=== PATIENT | female | born 1960 | race Caucasian/White ===

== ENCOUNTER 2017-07-02 11:36 | Inpatient (IN) | payer MEDICAID ==
[2017-07-02] MEDS ORDERED: Alum-Mag Hydrox-Simethicone Susp (30 mL) PO STA (12:26)
[2017-07-02] MEDS ORDERED: Atrop/Hyos/Scop/PhenoB Elixir PO STA (12:26)
--- NOTE | 2017-07-02 12:32 | ED PDOC ---
HPI: General Adult Time Seen by Provider: 07/02/17 12:25 Chief Complaint (Nursing): Abdominal Pain Chief Complaint (Provider): abdominal pain History Per: Patient, Commissary Representative (son at bedside) History/Exam Limitations: language barrier (bruneian speaking) Onset/Duration Of Symptoms: Days (<1) Have you had recent travel within the past 21 days to any of the following countries: [place], [place], [place] or [place]?: No Current Symptoms Are (Timing): Still Present Severity: Severe Pain Scale Rating Of: 10 Recently: Treated By A Physician Additional History Per: Patient Additional Complaint(s): pt p/w + few hours onset of epigastric pain, radiating to her mid back and radiating down her abd (left side), at most pain is 10/10; pt states + nausea, + sweating, subjective fever, no chills, no cp/sob/palpitations, no vomiting, no appetite, no urinary/bowel changes; pt states last BM was this morning and it was normal; pt states pain started while she was at work this morning; pt has had similar pain in the past and her PCP had prescribed her gastritis medications; pt states no fall/trauma/sick contact, no travel counselor is here for further eval pt's without other complaints. PCP: DR roberts Past Medical History Reviewed: Historical Data, Nursing Documentation, Vital Signs Vital Signs: Last Vital Signs Temp 98.5 F 07/02/17 16:58 Pulse 60 07/02/17 16:58 Resp 20 07/02/17 16:58 BP 127/78 07/02/17 16:58 Pulse Ox 98 07/02/17 16:58 - Medical History PMH: Diabetes, Gastritis - Surgical History Surgical History: No Surg Hx - Family History Family History: States: No Known Family Hx - Living Arrangements Living Arrangements: With Family - Social History Current smoker - smoking cessation education provided: No Ex-Smoker (has not smoked in the last 12 months): No Alcohol: None Drugs: Denies - Home Medications Home Medications: Ambulatory Orders Medication Instructions Recorded Atorvastatin [Lipitor] 20 mg PO DAILY 07/02/17 SITagliptin [Januvia] 100 mg PO DAILY 07/02/17 - Allergies Allergies/Adverse Reactions: Allergies Allergy/AdvReac Type Severity Reaction Status Date / Time Penicillins Allergy RASH Verified 07/02/17 12:05 Tetracyclines Allergy RASH Verified 07/02/17 12:05 Review of Systems ROS Statement: Except As Marked, All Systems Reviewed And Found Negative Constitutional: Positive for: Fever, Chills, Weakness. Negative for: Sweats Eyes: Negative for: Pain, Vision Change ENT: Negative for: Ear Pain, Nose Pain, Nose Congestion Cardiovascular: Negative for: Chest Pain Respiratory: Negative for: Cough, Shortness of Breath, SOB with Exertion Gastrointestinal: Positive for: Nausea, Abdominal Pain Genitourinary Female: Negative for: Dysuria, Frequency, Incontinence, Hematuria , Vaginal Discharge, Vaginal Bleeding Musculoskeletal: Positive for: Back Pain. Negative for: Neck Pain, Arm Pain, Hand Pain Skin: Negative for: Rash Neurological: Positive for: Weakness, Dizziness. Negative for: Headache Psych: Negative for: Anxiety, Depression Physical Exam - Reviewed Nursing Documentation Reviewed: Yes Vital Signs Reviewed: Yes (mildly elevated BP) - Physical Exam Comments: General: alert/awake, GCS = 15, oriented x 3, resting in bed, uncomfortable, cooperative, interactive; moderate distress due to pain/writhing in pain in her exam bed Head: NC/AT EYE: PERRLA, EOMI, sclera anicteric, no nystagmus, no photophobia; visual field intact b/l Facial: WNL Oral: uvula/tongue are midline, no exudate/lesions, no drooling/stridor, no dysphonia; intact dentitions; dry oral mucosa NECK: intact ROM, no midline tenderness, no nuchal rigidity, no meningeal signs ; no step off Chest: CTA b/l, no w/r/r; no tachypenia, no accessory muscle use noted Cardiac: +S1, +S2, no m/r/r, no tachycardia Abdominal: +BS, soft/nd; + mid epigastric tenderness, well nourished/mild obese patient; no masses/rebound/guarding/rigidity; + aparicio's sign, no mcburney's point tenderness Extremities: intact ROM, strength 5/5 grossly intact in all limbs, neurovasc intact b/l; + ambulatory; reflex +2/2 BACK: no step off, no midline tenderness, NO crepitus, no gross deformities noted; Intact ROM SKIN: cap refill < 1 sec, no ulcerations, no petechiae, no rashes NEURO: CNII-XII WNL, no facial asymmetries, no slurr speech, oriented x 3 NIH stroke scale ~ 0 Psych: normal insight, normal affect; follows command with ease - Laboratory Results Result Diagrams: 07/02/17 12:55 07/02/17 12:55 Interpretation Of Abnormal: elevated GLUC - ECG ECG: Positive for: Interpreted By Me, Viewed By Me Interpretation Of ECG: Sinus klaus at 55 bpm, LAD, no ectopy, non-specific st-t changes, ABNL EKG; no old ekg to compare with O2 Sat by Pulse Oximetry: 99 Pulse Ox Interpretation: Normal - Radiology X-Ray: Viewed By Me, Read By Radiologist - Progress ED Course And Treament: Time: 1351 US HISTORY: r/o gallstones COMPARISON: None. TECHNIQUE: Sonographic evaluation of the abdomen. FINDINGS: LIVER: Measures 15.5 cm. There is diffuse increased echogenicity of the liver parenchyma with inhomogeneous echotexture. No mass. No intrahepatic bile duct dilatation. GALLBLADDER: There are multiple gallstones and two nonmobile stones in the neck of the gallbladder. No wall thickening or pericholecystic fluid. The sonographic Aparicio's sign is positive. COMMON BILE DUCT: Measures 5.7 mm. No stones. No dilatation. PANCREAS: Unremarkable as visualized. No mass. No ductal dilatation. RIGHT KIDNEY: Measures 11.8cm. Normal echogenicity. No calculus, mass, or hydronephrosis. AORTA: No aneurysmal dilatation. IVC: Unremarkable. OTHER FINDINGS: None. IMPRESSION: Cholelithiasis. Concern for 2 impacted gallbladder neck stones. The sonographic Aparicio's sign is positive. No pericholecystic fluid or gallbladder wall thickening. Diffuse increased echogenicity in the liver may reflect hepatic steatosis however parenchymal infectious/ inflammatory etiologies cannot be entirely excluded. Clinical and laboratory correlation is advised. Time: 1359 cxr PROCEDURE: CHEST RADIOGRAPH, 1 VIEW HISTORY: epigastric pain COMPARISON: None available. FINDINGS: LUNGS: The lungs are well inflated and clear. PLEURA: No pneumothorax or pleural fluid seen. CARDIOVASCULAR: Normal. OSSEOUS STRUCTURES: No significant abnormalities. VISUALIZED UPPER ABDOMEN: Normal. OTHER FINDINGS: None. IMPRESSION: No active pulmonary disease. 13:30 - pt is doing well, pt just returned from her [place]; pt states pain is much improved, currently at 4-5/10 pt has no nausea pt is currently awaiting lab/diagnostic results 1430 - pt's abd pain returned 1505 - spoke to surg supervisor travel information center made aware, will evaluate patient at bedside surg recommend pt for medicine admission, continue NPO and will continue to monitor 15:[address] Leyva, medical service attendee supervisor travel information center who agrees with ED management and treatment; agrees with admission. pt/family are made aware of pt's medical results agrees with admission Re-evaluation Time: 13:44 Condition: Improved Medical Decision Making Medical Decision Making: Impression: epigastric pain i have consider all the differential diagnosis regarding pt's chief medical complaints/clinical findings, including but are not limited to: epigastric pain A/P: epigastric pain - labs - iv - xray - us, possible ct if negative U/S - ua - supportive care - observe/reevaluation Disposition - Clinical Impression Clinical Impression: Biliary colic, Intractable abdominal pain - Patient ED Disposition Is Patient to be Admitted: Yes Discussed With : Clarke Leyva Doctor Will See Patient In The: Hospital Counseled Patient/Family Regarding: Studies Performed, Diagnosis, Need For Followup, Rx Given - Disposition Disposition Time: 15:43 Condition: STABLE
[2017-07-02] MEDS ORDERED: Morphine 4 MG/ML VIAL ONE ×2 (12:37→14:11)
[2017-07-02] MEDS ORDERED: Alum-Mag Hydrox-Simethicone Susp (30 mL) ONE (12:38)
[2017-07-02] MEDS ORDERED: Sodium Chloride 0.9% 1,000 ML IV SCH (12:45)
[2017-07-02 13:05] LABS: BASO % 0.6 % (0.0-2.0); EOS % 0.2 % (0.0-4.0); HEMOGLOBIN 13.6 g/dL (12.0-16.0); LYMPH # 1.9 K/uL (1.0-4.3); LYMPH % 23.7 % (20.0-40.0); MEAN CELL VOLUME 81.1 fl (81.0-99.0); MEAN CORPUSCULAR HEMOGLOBIN 27.5 pg (27.0-31.0); MEAN CORPUSCULAR HGB CONC 33.9 g/dL (33.0-37.0); MEAN PLATELET VOLUME 8.8 fl (7.2-11.7); MONO # 0.5 K/uL (0.0-0.8); MONO % 6.5 % (0.0-10.0); NEUT # 5.5 K/uL (1.8-7.0); NRBC % 0.2 % (0.0-0.0); RBC 4.94 Mil/uL (3.80-5.20); RED CELL DISTRIBUTION WIDTH 14.2 % (11.5-14.5)
[2017-07-02 13:08] LABS: VENOUS BLOOD GAS BASE EXCESS 2.5 mmol/L (0.0-2.0); VENOUS BLOOD GAS PCO2 48 mmHg (40-60); VENOUS BLOOD GAS PO2 36 mm/Hg (30-55); VENOUS BLOOD PH 7.38 (7.32-7.43)
[2017-07-02 13:14] LABS: ALB/GLOB RATIO 1.3 (1.0-2.1); ALT/SGPT 50 U/L (9-52); AST/SGOT 25 U/L (14-36); BLOOD UREA NITROGEN 13 mg/dl (7-17); CALCIUM 9.1 mg/dL (8.4-10.2); GFR AFRICAN-AMERICAN > 60; GFR NON-AFRICAN AMERICAN > 60; LIPASE 81 U/L (23-300)
--- NOTE | 2017-07-02 13:52 | US ---
HISTORY: r/o gallstones COMPARISON: None. TECHNIQUE: Sonographic evaluation of the abdomen. FINDINGS: LIVER: Measures 15.5 cm. There is diffuse increased echogenicity of the liver parenchyma with inhomogeneous echotexture. No mass. No intrahepatic bile duct dilatation. GALLBLADDER: There are multiple gallstones and two nonmobile stones in the neck of the gallbladder. No wall thickening or pericholecystic fluid. The sonographic Aparicio's sign is positive. COMMON BILE DUCT: Measures 5.7 mm. No stones. No dilatation. PANCREAS: Unremarkable as visualized. No mass. No ductal dilatation. RIGHT KIDNEY: Measures 11.8cm. Normal echogenicity. No calculus, mass, or hydronephrosis. AORTA: No aneurysmal dilatation. IVC: Unremarkable. OTHER FINDINGS: None. IMPRESSION: Cholelithiasis. Concern for 2 impacted gallbladder neck stones. The sonographic Aparicio's sign is positive. No pericholecystic fluid or gallbladder wall thickening. Diffuse increased echogenicity in the liver may reflect hepatic steatosis however parenchymal infectious/ inflammatory etiologies cannot be entirely excluded. Clinical and laboratory correlation is advised.
[2017-07-02 13:55] LABS: SQUAMOUS EPITHIAL 1 /hpf (0-5); URINE BILIRUBIN NEGATIVE (NEGATIVE); URINE BLOOD NEGATIVE (NEGATIVE); URINE CLARITY CLEAR (Clear); URINE COLOR YELLOW (YELLOW); URINE GLUCOSE (UA) >=500 mg/dL (Normal); URINE LEUKOCYTE ESTERASE TRACE Leu/uL (Negative); URINE PROTEIN NEGATIVE (NEGATIVE); URINE UROBILINOGEN 0.2-1.0 mg/dL (0.2-1.0)
--- NOTE | 2017-07-02 14:01 | RAD ---
PROCEDURE: CHEST RADIOGRAPH, 1 VIEW HISTORY: epigastric pain COMPARISON: None available. FINDINGS: LUNGS: The lungs are well inflated and clear. PLEURA: No pneumothorax or pleural fluid seen. CARDIOVASCULAR: Normal. OSSEOUS STRUCTURES: No significant abnormalities. VISUALIZED UPPER ABDOMEN: Normal. OTHER FINDINGS: None. IMPRESSION: No active pulmonary disease.
[2017-07-02] MEDS ORDERED: Morphine 4 MG/ML VIAL IVP ONE (14:17)
--- NOTE | 2017-07-02 14:52 | CP.PCM.CON ---
History of Present Illness - History of Present Illness History of Present Illness: General Surgery Consult Note: Dr. Aguero 56F with PMHx of DM presents to [facility] ED with complaints of abdominal pain.Patient states pain began this morning after eating a bowl of oatmeal. She reports pain began suddenly along her epigastrium and began to radiate towards her RUQ and back. Patient reports nausea but denies vomiting. She also denies fever/chills. States this is the first time she feels this type of abdominal pain. PMHx: as stated above PSurgHx: denies Allergies: Penicillin, Tetracyclines Soc Hx: Denies smoking, EtOH use, illicit drug use Fam Hx: non contributory Review of Systems - Review of Systems Review of Systems: 12 pt ROS unremarkable except as stated in HPI Past Patient History - Past Medical History & Family History Past Medical History?: No - Past Social History Alcohol: None Drugs: Denies - GASTROINTESTINAL Hx Gastritis: Yes - PSYCHIATRIC Hx Substance Use: No - SURGICAL HISTORY Hx Surgeries: No - ANESTHESIA Hx Anesthesia: No Meds Allergies/Adverse Reactions: Allergies Allergy/AdvReac Type Severity Reaction Status Date / Time Penicillins Allergy RASH Verified 07/02/17 12:05 Tetracyclines Allergy RASH Verified 07/02/17 12:05 - Medications Medications: Current Medications Sodium Chloride (Sodium Chloride 0.9%) 1,000 mls @ 1,000 mls/hr IV .Q1H DAVON Stop: 07/03/17 12:32 Last Admin: 07/02/17 14:36 Dose: 1,000 mls/hr Ciprofloxacin (Cipro 400mg/200ml Dsw) 400 mg in 200 mls @ 200 mls/hr IVPB Q12 DAVON PRN Reason: Protocol Metronidazole (Flagyl 500mg/100ml Ns) 100 mls @ 100 mls/hr IVPB Q8 DAVON PRN Reason: Protocol Morphine Sulfate (Morphine) 4 mg IVP Q4 PRN PRN Reason: Pain, moderate (4-7) Pantoprazole Sodium (Protonix Inj) 40 mg IVP DAILY DAVON Physical Exam - Constitutional Appears: No Acute Distress - Head Exam Head Exam: NORMOCEPHALIC - Eye Exam Eye Exam: Normal appearance - ENT Exam ENT Exam: Mucous Membranes Moist - Respiratory Exam Respiratory Exam: NORMAL BREATHING PATTERN - Cardiovascular Exam Cardiovascular Exam: +S1, +S2 - GI/Abdominal Exam GI & Abdominal Exam: Soft, Tenderness. absent: Distended, Firm, Rebound, Rigid Additional comments: +Aparicio's sign RUQ tenderness - Neurological Exam Neurological exam: Alert, Oriented x3 - Skin Skin Exam: Intact, Normal Color, Warm Results - Vital Signs Recent Vital Signs: Last Vital Signs Temp 97.9 F 07/02/17 12:05 Pulse 65 07/02/17 12:05 Resp 20 07/02/17 12:05 BP 148/72 07/02/17 12:05 Pulse Ox 99 07/02/17 14:14 - Labs Result Diagrams: 07/02/17 12:55 07/02/17 12:55 Labs: Laboratory Results - last 24 hr 07/02/17 07/02/17 07/02/17 12:48 12:55 12:55 WBC 8.0 RBC 4.94 Hgb 13.6 Hct 40.1 MCV 81.1 MCH 27.5 MCHC 33.9 RDW 14.2 Plt Count 290 MPV 8.8 Neut % (Auto) 69.0 Lymph % (Auto) 23.7 [place] % (Auto) 6.5 Eos % (Auto) 0.2 Baso % (Auto) 0.6 Neut # (Auto) 5.5 Lymph # (Auto) 1.9 [place] # (Auto) 0.5 Eos # (Auto) 0.0 Baso # (Auto) 0.0 pO2 VBG pH VBG pCO2 VBG HCO3 VBG Total CO2 VBG O2 Sat (Calc) VBG Base Excess VBG Potassium Glucose Lactate FiO2 Sodium 137 Potassium 4.0 Chloride 98 Carbon Dioxide 24 Anion Gap 19 BUN 13 Creatinine 0.5 L Est GFR ( Amer) > 60 Est GFR (Non-Af Amer) > 60 Random Glucose 223 H Serum Osmolality Calcium 9.1 Total Bilirubin 0.7 AST 25 ALT 50 Alkaline Phosphatase 107 Troponin I Total Protein 7.1 Albumin 4.0 Globulin 3.1 Albumin/Globulin Ratio 1.3 Lipase 81 Venous Blood Potassium Urine Color Yellow Urine Clarity Clear Urine pH 6.0 Ur Specific [place] 1.024 Urine Protein Negative Urine Glucose (UA) >=500 Urine Ketones Negative Urine Blood Negative Urine Nitrate Negative Urine Bilirubin Negative Urine Urobilinogen 0.2-1.0 Ur Leukocyte Esterase Trace Urine RBC (Auto) 2 Urine Microscopic WBC 1 Ur Squamous Epith Cells 1 07/02/17 07/02/1718 12:55 13:04 13:40 WBC RBC Hgb Hct MCV MCH MCHC RDW Plt Count MPV Neut % (Auto) Lymph % (Auto) [place] % (Auto) Eos % (Auto) Baso % (Auto) Neut # (Auto) Lymph # (Auto) [place] # (Auto) Eos # (Auto) Baso # (Auto) pO2 36 VBG pH 7.38 VBG pCO2 48 VBG HCO3 26.1 VBG Total CO2 29.9 H VBG O2 Sat (Calc) 74.4 H VBG Base Excess 2.5 H VBG Potassium 4.0 Glucose 238 H Lactate 1.7 FiO2 21.0 Sodium 136.0 Potassium Chloride 99.0 Carbon Dioxide Anion Gap BUN Creatinine Est GFR ( Amer) Est GFR (Non-Af Amer) Random Glucose Serum Osmolality 294 Calcium Total Bilirubin AST ALT Alkaline Phosphatase Troponin I < 0.0120 Total Protein Albumin Globulin Albumin/Globulin Ratio Lipase Venous Blood Potassium 4.0 Urine Color Urine Clarity Urine pH Ur Specific [place] Urine Protein Urine Glucose (UA) Urine Ketones Urine Blood Urine Nitrate Urine Bilirubin Urine Urobilinogen Ur Leukocyte Esterase Urine RBC (Auto) Urine Microscopic WBC Ur Squamous Epith Cells - Imaging and Cardiology CT scan - abdomen Status: Image reviewed by me, Report reviewed by me Assessment & Plan - Assessment and Plan (Free Text) Assessment: 56F with biliary colic Plan: NPO IVF ABx Anti-emetic prn Analgesic prn PPI SCDs Likely for OR tomorrow Further recs per Dr. Laci CARTER PGY2
[2017-07-02] MEDS ORDERED: Ciprofloxacin 400mg/200ml D5W 400 MG/200 ML BAG IVPB ONE (15:28)
[2017-07-02] MEDS ORDERED: metroNIDAZOLE 500mg/100ml NS 100 ML IVPB ONE (16:38)
[2017-07-02] MEDS: metroNIDAZOLE 500mg/100ml NS 100 ML IVPB SCH (16:42)
[2017-07-02] MEDS: Lactated Ringer's 1,000 ML IV SCH (17:44)
[2017-07-02] MEDS ORDERED: Ciprofloxacin 400mg/200ml D5W 400 MG/200 ML BAG IVPB SCH (21:00)
[2017-07-02] MEDS ORDERED: Apap-Butalbital-Caffeine 325-50-40mg Tab PO STA (21:18)
[2017-07-02] MEDS: Insulin Lispro (humaLOG) 100 Units/ml Inj SC SCH (22:47)
--- NOTE | 2017-07-02 22:55 | CT ---
EXAM: CT Head Without Intravenous Contrast EXAM DATE/TIME: 07/02/2017 9:19 PM CLINICAL HISTORY: 56 years old, female; Pain; Headache; Headache not specified; Additional info: BHAGAT for over 1 month TECHNIQUE: Axial computed tomography images of the head/brain without intravenous contrast. All CT scans at this facility use one or more dose reduction techniques, viz.: automated exposure control; ma/kV adjustment per patient size (including targeted exams where dose is matched to indication; i.e. head); or iterative reconstruction technique. Coronal and sagittal reformatted images were created and reviewed. COMPARISON: No relevant prior studies available. FINDINGS: No intracranial hemorrhage. No intracranial edema. No evidence of infarct. The sinuses and mastoid air cells are clear. IMPRESSION: No acute findings.
[2017-07-03] MEDS: metroNIDAZOLE 500mg/100ml NS 100 ML IVPB SCH ×2 (00:41→10:47)
[2017-07-03] MEDS ORDERED: Ciprofloxacin 400mg/200ml D5W 400 MG/200 ML BAG IVPB SCH (04:00)
--- NOTE | 2017-07-03 06:03 | CP.PCM.HP ---
History of Present Illness - History of Present Illness History of Present Illness: 56F with PMHx of DM presents to [facility] ED with complaints of abdominal pain.Patient states pain began this morning after eating a bowl of oatmeal. She reports pain began suddenly along her epigastrium and began to radiate towards her RUQ and back. Patient reports nausea but denies vomiting. She also denies fever/chills. States this is the first time she feels this type of abdominal pain. PMHx: as stated above PSurgHx: denies Allergies: Penicillin, Tetracyclines Soc Hx: Denies smoking, EtOH use, illicit drug use Fam Hx: non contributory Present on Admission - Present on Admission Any Indicators Present on Admission: No Review of Systems - Review of Systems Review of Systems: 12 pt ROS unremarkable except as stated in HPI Past Patient History - Past Medical History & Family History Past Medical History?: No - Past Social History Alcohol: None Drugs: Denies - CARDIAC Hx Cardiac Disorders: No - PULMONARY Hx Respiratory Disorders: No - NEUROLOGICAL Hx Neurological Disorder: No - HEENT Hx HEENT Problems: No - RENAL Hx Chronic Kidney Disease: No - ENDOCRINE/METABOLIC Hx Diabetes Mellitus Type 1: Yes - HEMATOLOGICAL/ONCOLOGICAL Hx Blood Disorders: No - INTEGUMENTARY Hx Dermatological Problems: No - MUSCULOSKELETAL/RHEUMATOLOGICAL Hx Musculoskeletal Disorders: No Hx Falls: No - GASTROINTESTINAL Hx Gastritis: Yes - GENITOURINARY/GYNECOLOGICAL Hx Genitourinary Disorders: No - PSYCHIATRIC Hx Psychophysiologic Disorder: No Hx Substance Use: No - SURGICAL HISTORY Hx Surgeries: No - ANESTHESIA Hx Anesthesia: No Meds Allergies/Adverse Reactions: Allergies Allergy/AdvReac Type Severity Reaction Status Date / Time Penicillins Allergy RASH Verified 07/02/17 12:05 Tetracyclines Allergy RASH Verified 07/02/17 12:05 Physical Exam - Constitutional Appears: Non-toxic, No Acute Distress - Head Exam Head Exam: NORMOCEPHALIC - Eye Exam Eye Exam: EOMI, Normal appearance - ENT Exam ENT Exam: Mucous Membranes Moist - Respiratory Exam Respiratory Exam: NORMAL BREATHING PATTERN - Cardiovascular Exam Cardiovascular Exam: +S1, +S2 - GI/Abdominal Exam GI & Abdominal Exam: Soft, Tenderness. absent: Distended, Firm, Guarding, Rebound, Rigid Additional comments: +Aparicio's sign +RUQ tenderness - Neurological Exam Neurological exam: Alert, Oriented x3 - Psychiatric Exam Psychiatric exam: Normal Mood - Skin Skin Exam: Dry, Intact, Warm Results - Vital Signs Recent Vital Signs: Last Vital Signs Temp 98.2 F 07/02/17 23:58 Pulse 58 L 07/02/17 23:58 Resp 18 07/02/17 23:58 BP 104/64 07/02/17 23:58 Pulse Ox 98 07/02/17 23:58 - Labs Result Diagrams: 07/02/17 12:55 07/02/17 12:55 Labs: Laboratory Results - last 24 hr 07/02/17 07/02/17 07/02/17 12:48 12:55 12:55 WBC 8.0 RBC 4.94 Hgb 13.6 Hct 40.1 MCV 81.1 MCH 27.5 MCHC 33.9 RDW 14.2 Plt Count 290 MPV 8.8 Neut % (Auto) 69.0 Lymph % (Auto) 23.7 [place] % (Auto) 6.5 Eos % (Auto) 0.2 Baso % (Auto) 0.6 Neut # (Auto) 5.5 Lymph # (Auto) 1.9 [place] # (Auto) 0.5 Eos # (Auto) 0.0 Baso # (Auto) 0.0 pO2 VBG pH VBG pCO2 VBG HCO3 VBG Total CO2 VBG O2 Sat (Calc) VBG Base Excess VBG Potassium Glucose Lactate FiO2 Sodium 137 Potassium 4.0 Chloride 98 Carbon Dioxide 24 Anion Gap 19 BUN 13 Creatinine 0.5 L Est GFR ( Amer) > 60 Est GFR (Non-Af Amer) > 60 POC Glucose (mg/dL) Random Glucose 223 H Serum Osmolality Calcium 9.1 Total Bilirubin 0.7 AST 25 ALT 50 Alkaline Phosphatase 107 Troponin I Total Protein 7.1 Albumin 4.0 Globulin 3.1 Albumin/Globulin Ratio 1.3 Lipase 81 Venous Blood Potassium Urine Color Yellow Urine Clarity Clear Urine pH 6.0 Ur Specific [place] 1.024 Urine Protein Negative Urine Glucose (UA) >=500 Urine Ketones Negative Urine Blood Negative Urine Nitrate Negative Urine Bilirubin Negative Urine Urobilinogen 0.2-1.0 Ur Leukocyte Esterase Trace Urine RBC (Auto) 2 Urine Microscopic WBC 1 Ur Squamous Epith Cells 1 07/02/17 07/02/17 07/02/17 12:55 13:04 13:40 WBC RBC Hgb Hct MCV MCH MCHC RDW Plt Count MPV Neut % (Auto) Lymph % (Auto) [place] % (Auto) Eos % (Auto) Baso % (Auto) Neut # (Auto) Lymph # (Auto) [place] # (Auto) Eos # (Auto) Baso # (Auto) pO2 36 VBG pH 7.38 VBG pCO2 48 VBG HCO3 26.1 VBG Total CO2 29.9 H VBG O2 Sat (Calc) 74.4 H VBG Base Excess 2.5 H VBG Potassium 4.0 Glucose 238 H Lactate 1.7 FiO2 21.0 Sodium 136.0 Potassium Chloride 99.0 Carbon Dioxide Anion Gap BUN Creatinine Est GFR ( Amer) Est GFR (Non-Af Amer) POC Glucose (mg/dL) Random Glucose Serum Osmolality 294 Calcium Total Bilirubin AST ALT Alkaline Phosphatase Troponin I < 0.0120 Total Protein Albumin Globulin Albumin/Globulin Ratio Lipase Venous Blood Potassium 4.0 Urine Color Urine Clarity Urine pH Ur Specific [place] Urine Protein Urine Glucose (UA) Urine Ketones Urine Blood Urine Nitrate Urine Bilirubin Urine Urobilinogen Ur Leukocyte Esterase Urine RBC (Auto) Urine Microscopic WBC Ur Squamous Epith Cells 07/02/17 07/03/17 21:19 05:36 WBC RBC Hgb Hct MCV MCH MCHC RDW Plt Count MPV Neut % (Auto) Lymph % (Auto) [place] % (Auto) Eos % (Auto) Baso % (Auto) Neut # (Auto) Lymph # (Auto) [place] # (Auto) Eos # (Auto) Baso # (Auto) pO2 VBG pH VBG pCO2 VBG HCO3 VBG Total CO2 VBG O2 Sat (Calc) VBG Base Excess VBG Potassium Glucose Lactate FiO2 Sodium Potassium Chloride Carbon Dioxide Anion Gap BUN Creatinine Est GFR ( Amer) Est GFR (Non-Af Amer) POC Glucose (mg/dL) 194 H 162 H Random Glucose Serum Osmolality Calcium Total Bilirubin AST ALT Alkaline Phosphatase Troponin I Total Protein Albumin Globulin Albumin/Globulin Ratio Lipase Venous Blood Potassium Urine Color Urine Clarity Urine pH Ur Specific [place] Urine Protein Urine Glucose (UA) Urine Ketones Urine Blood Urine Nitrate Urine Bilirubin Urine Urobilinogen Ur Leukocyte Esterase Urine RBC (Auto) Urine Microscopic WBC Ur Squamous Epith Cells Assessment & Plan - Assessment and Plan (Free Text) Assessment: 56F with biliary colic Plan: NPO IVF ABx Anti-emetic prn Analgesic prn PPI SCDs For OR in AM Further recs per Dr. Laci CARTER PGY2
[2017-07-03 06:19] LABS: BASO % 0.5 % (0.0-2.0); EOS % 0.3 % (0.0-4.0); HEMOGLOBIN 13.4 g/dL (12.0-16.0); LYMPH # 2.5 K/uL (1.0-4.3); LYMPH % 27.8 % (20.0-40.0); MEAN CELL VOLUME 81.7 fl (81.0-99.0); MEAN CORPUSCULAR HEMOGLOBIN 26.9 pg (27.0-31.0); MEAN CORPUSCULAR HGB CONC 32.9 g/dL (33.0-37.0); MEAN PLATELET VOLUME 8.8 fl (7.2-11.7); MONO # 0.6 K/uL (0.0-0.8); MONO % 6.7 % (0.0-10.0); NEUT # 5.8 K/uL (1.8-7.0); NEUT % 64.7 % (50.0-75.0); NRBC % 0.1 % (0.0-0.0); RBC 4.98 Mil/uL (3.80-5.20); RED CELL DISTRIBUTION WIDTH 14.2 % (11.5-14.5); WHITE BLOOD COUNT 8.9 K/uL (4.8-10.8)
[2017-07-03 06:33] LABS: PARTIAL THROMBOPLASTIN TIME 28.3 Seconds (25.6-37.1); PROTHROMBIN TIME 10.7 Seconds (9.8-13.1)
[2017-07-03 06:46] LABS: ALB/GLOB RATIO 1.3 (1.0-2.1); ALBUMIN 3.5 g/dL (3.5-5.0); ALT/SGPT 43 U/L (9-52); AST/SGOT 20 U/L (14-36); BLOOD UREA NITROGEN 11 mg/dl (7-17); CALCIUM 8.7 mg/dL (8.4-10.2); GFR AFRICAN-AMERICAN > 60; GFR NON-AFRICAN AMERICAN > 60
[2017-07-03] MEDS ORDERED: Neostigmine 1:1000 (1 mg/ml) Inj ONE (07:21)
[2017-07-03] MEDS ORDERED: Succinylcholine 200 mg/10 ml Inj IV ONE (07:21)
[2017-07-03] MEDS ORDERED: Lidocaine 4% (Laryng-O-Jet) Kit MM ONE (07:21)
[2017-07-03] MEDS ORDERED: Rocuronium 10 mg/ml (5 ml) ONE (07:21)
[2017-07-03] MEDS ORDERED: Phenylephrine 10 mg/ml Inj ONE (07:21)
[2017-07-03] MEDS ORDERED: Propofol 10 mg/ml Inj (20 ML) ONE (07:21)
[2017-07-03] MEDS ORDERED: metroNIDAZOLE 500mg/100ml NS 100 ML IVPB ONE (07:38)
[2017-07-03] MEDS ORDERED: metroNIDAZOLE 500mg/100ml NS IVPB ONE (07:45)
[2017-07-03] MEDS ORDERED: Lactated Ringer's 1,000 ML IV ONE ×2 (07:45→08:25)
[2017-07-03] MEDS ORDERED: Bupivacaine HCl 0.5% PF (30 ml) Inj ONE (07:49)
[2017-07-03] MEDS ORDERED: Lidocaine 2% Inj (20ml) ONE (07:50)
[2017-07-03] MEDS ORDERED: Midazolam 2 MG/2 ML VIAL ONE (08:01)
[2017-07-03] MEDS ORDERED: Dexamethasone 4 mg/1 ml ONE (08:06)
[2017-07-03] MEDS ORDERED: Lidocaine 2% Inj (20ml) IJ ONE (08:15)
[2017-07-03] MEDS ORDERED: Bupivacaine 0.5% Inj(30mL) IJ ONE (08:15)
[2017-07-03] MEDS: Insulin Lispro (humaLOG) 100 Units/ml Inj SC SCH ×2 (08:28→12:32)
--- NOTE | 2017-07-03 08:42 | CARD ---
APPROVED REPORT EKG Measurement Heart [id number] <Conclusion> Sinus bradycardia Otherwise normal ECG
[2017-07-03] MEDS ORDERED: HYDROmorphone 0.5 mg/0.5 ml ISec IVP PRN (09:40)
[2017-07-03] MEDS ORDERED: Lactated Ringer's 1,000 ML IV SCH (09:45)
[2017-07-03] MEDS ORDERED: Oxycodone/Acetaminophen 5/325 mg Tab PO PRN (10:29)
--- NOTE | 2017-07-03 10:33 | PCM.SURG1 ---
Surgeon's Initial Post Op Note - Surgeon's Notes Surgeon: Dr. Beverly Tactical Debriefer Officer: Angelica ritchie PGY2 Type of Anesthesia: General Endo, Local Pre-Operative Diagnosis: symptomatic cholelithiasis Operative Findings: pericholecystic edema Post-Operative Diagnosis: cholecystitis Operation Performed: Laparoscopic cholecystectomy Specimen/Specimens Removed: Gallbladder Estimated Blood Loss: EBL {In ML}: 10 Blood Products Given: N/A Drains Used: No Drains Post-Op Condition: Good Date of Surgery/Procedure: 07/03/17 Time of Surgery/Procedure: 10:32
--- NOTE | 2017-07-03 10:33 | CP.PCM.PCO ---
Physician Communication Note - Physician Communication Note Physician Communication Note: HARRIS to SUDEEP w ABX
[2017-07-03 11:06] VITALS: RESP 18
[2017-07-03] MEDS: Lactated Ringer's 1,000 ML IV SCH (12:34)
--- NOTE | 2017-07-03 15:03 | CP.PCM.HP ---
History of Present Illness - History of Present Illness History of Present Illness: Cc: Abdominal pain History of Present Illness: A 56 year old femaile with a Pmhx of diabetes and high cholesterol who presented to the ED with c/o of epigastric pain which started a few hours prior to coming to the ED. States pain radiates to her mid back and down her abdomen on the left side. The pain is constant and is 10/10 in severity associated with nausea, sweating and subjective fever. Denies chills, chest pain, sob, palpitations, vomiting, poor appetite or urinary/bowel changes. Patient states last BM was the morning of admission and it was normal. Also states pain started while she was at work in the morning, had similar pain in the past and her PCP had prescribed her gastritis medications; pt states no fall, trauma or sick contact. Pt without other complaints. The patient was admitted for further evaluation. Present on Admission - Present on Admission Any Indicators Present on Admission: No Review of Systems - Review of Systems All systems: reviewed and no additional remarkable complaints except (as stated) - Constitutional Constitutional: As Per HPI - Cardiovascular Cardiovascular: As Per HPI - Respiratory Respiratory: As Per HPI - Gastrointestinal Gastrointestinal: As Per HPI Past Patient History - Past Medical History & Family History Past Medical History?: No Past Family History: Reviewed and not pertinent - Past Social History Alcohol: None Drugs: Denies - CARDIAC Hx Cardiac Disorders: No - PULMONARY Hx Respiratory Disorders: No - NEUROLOGICAL Hx Neurological Disorder: No - HEENT Hx HEENT Problems: No - RENAL Hx Chronic Kidney Disease: No - ENDOCRINE/METABOLIC Hx Diabetes Mellitus Type 1: Yes - HEMATOLOGICAL/ONCOLOGICAL Hx Blood Disorders: No - INTEGUMENTARY Hx Dermatological Problems: No - MUSCULOSKELETAL/RHEUMATOLOGICAL Hx Musculoskeletal Disorders: No Hx Falls: No - GASTROINTESTINAL Hx Gastritis: Yes - GENITOURINARY/GYNECOLOGICAL Hx Genitourinary Disorders: No - PSYCHIATRIC Hx Psychophysiologic Disorder: No Hx Substance Use: No - SURGICAL HISTORY Hx Surgeries: No - ANESTHESIA Hx Anesthesia: No Meds Home Medications: Home Medication List Medication Instructions Recorded Confirmed Type Ciprofloxacin HCl [Cipro] 500 mg PO BID #10 tablet 07/03/17 Rx Ibuprofen [Motrin] 600 mg PO Q6 PRN #30 tab 07/03/17 Rx Metronidazole [Flagyl] 500 mg PO TID #15 tab 07/03/17 Rx Allergies/Adverse Reactions: Allergies Allergy/AdvReac Type Severity Reaction Status Date / Time Penicillins Allergy RASH Verified 07/02/17 12:05 Tetracyclines Allergy RASH Verified 07/02/17 12:05 Physical Exam - Constitutional Appears: Well, No Acute Distress - Head Exam Head Exam: ATRAUMATIC, NORMOCEPHALIC - Eye Exam Eye Exam: EOMI, Normal appearance, PERRL Pupil Exam: NORMAL ACCOMODATION - ENT Exam ENT Exam: Mucous Membranes Moist, Normal Exam - Neck Exam Neck exam: Positive for: Normal Inspection - Respiratory Exam Respiratory Exam: Clear to Auscultation Bilateral, NORMAL BREATHING PATTERN - Cardiovascular Exam Cardiovascular Exam: REGULAR RHYTHM, +S1, +S2 - GI/Abdominal Exam GI & Abdominal Exam: Guarding, Normal Bowel Sounds, Tenderness (RUQ) - Rectal Exam Rectal Exam: Deferred - Extremities Exam Extremities exam: Positive for: full ROM, normal inspection - Back Exam Back exam: NORMAL INSPECTION - Neurological Exam Neurological exam: Alert, Oriented x3 - Psychiatric Exam Psychiatric exam: Normal Affect, Normal Mood - Skin Skin Exam: Dry, Normal Color, Warm Results - Vital Signs Recent Vital Signs: Last Vital Signs Temp 98.5 F 07/03/17 13:00 Pulse 61 07/03/17 13:00 Resp 18 07/03/17 13:00 BP 112/61 07/03/17 13:00 Pulse Ox 96 07/03/17 13:00 - Labs Result Diagrams: 07/03/17 05:45 07/03/17 05:45 Labs: Laboratory Results - last 24 hr 07/02/17 07/02/17 07/03/17 12:55 21:19 05:36 WBC RBC Hgb Hct MCV MCH MCHC RDW Plt Count MPV Neut % (Auto) Lymph % (Auto) Wilkes % (Auto) Eos % (Auto) Baso % (Auto) Neut # (Auto) Lymph # (Auto) Wilkes # (Auto) Eos # (Auto) Baso # (Auto) PT INR APTT Sodium Potassium Chloride Carbon Dioxide Anion Gap BUN Creatinine Est GFR ( Amer) Est GFR (Non-Af Amer) POC Glucose (mg/dL) 194 H 162 H Random Glucose Hemoglobin A1c Calcium Total Bilirubin AST ALT Alkaline Phosphatase Total Protein Albumin Globulin Albumin/Globulin Ratio TSH 3rd Generation B-Hydroxybutyrate 0.07 07/03/17 07/03/17 07/03/17 05:45 05:45 05:45 WBC 8.9 RBC 4.98 Hgb 13.4 Hct 40.7 MCV 81.7 MCH 26.9 L MCHC 32.9 L RDW 14.2 Plt Count 301 MPV 8.8 Neut % (Auto) 64.7 Lymph % (Auto) 27.8 Wilkes % (Auto) 6.7 Eos % (Auto) 0.3 Baso % (Auto) 0.5 Neut # (Auto) 5.8 Lymph # (Auto) 2.5 Wilkes # (Auto) 0.6 Eos # (Auto) 0.0 Baso # (Auto) 0.0 PT 10.7 INR 1.0 APTT 28.3 Sodium 138 Potassium 3.8 Chloride 99 Carbon Dioxide 27 Anion Gap 16 BUN 11 Creatinine 0.5 L Est GFR ( Amer) > 60 Est GFR (Non-Af Amer) > 60 POC Glucose (mg/dL) Random Glucose 194 H Hemoglobin A1c Calcium 8.7 Total Bilirubin 0.9 AST 20 ALT 43 Alkaline Phosphatase 80 Total Protein 6.2 L Albumin 3.5 Globulin 2.7 Albumin/Globulin Ratio 1.3 TSH 3rd Generation 2.22 B-Hydroxybutyrate 07/03/17 07/03/17 05:45 11:46 WBC RBC Hgb Hct MCV MCH MCHC RDW Plt Count MPV Neut % (Auto) Lymph % (Auto) Wilkes % (Auto) Eos % (Auto) Baso % (Auto) Neut # (Auto) Lymph # (Auto) Wilkes # (Auto) Eos # (Auto) Baso # (Auto) PT INR APTT Sodium Potassium Chloride Carbon Dioxide Anion Gap BUN Creatinine Est GFR ( Amer) Est GFR (Non-Af Amer) POC Glucose (mg/dL) 239 H Random Glucose Hemoglobin A1c 10.2 H Calcium Total Bilirubin AST ALT Alkaline Phosphatase Total Protein Albumin Globulin Albumin/Globulin Ratio TSH 3rd Generation B-Hydroxybutyrate - Imaging and Cardiology US - abdomen Additional comment: HISTORY: r/o gallstones COMPARISON: None. TECHNIQUE: Sonographic evaluation of the abdomen. FINDINGS: LIVER: Measures 15.5 cm. There is diffuse increased echogenicity of the liver parenchyma with inhomogeneous echotexture. No mass. No intrahepatic bile duct dilatation. GALLBLADDER: There are multiple gallstones and two nonmobile stones in the neck of the gallbladder. No wall thickening or pericholecystic fluid. The sonographic Aparicio's sign is positive. COMMON BILE DUCT: Measures 5.7 mm. No stones. No dilatation. PANCREAS: Unremarkable as visualized. No mass. No ductal dilatation. RIGHT KIDNEY: Measures 11.8cm. Normal echogenicity. No calculus, mass, or hydronephrosis. AORTA: No aneurysmal dilatation. IVC: Unremarkable. OTHER FINDINGS: None. IMPRESSION: Cholelithiasis. Concern for 2 impacted gallbladder neck stones. The sonographic Aparicio's sign is positive. No pericholecystic fluid or gallbladder wall thickening. Diffuse increased echogenicity in the liver may reflect hepatic steatosis however parenchymal infectious/ inflammatory etiologies cannot be entirely excluded. Clinical and laboratory correlation is advised. Assessment & Plan (1) Acute cholecystitis Assessment and Plan: NPO IVF IV Antibiotics ID Consulted Surgery consult Patient medically cleared for surgery Status: Acute (2) Diabetes Assessment and Plan: continue home medications Insulin ss Status: Acute (3) High cholesterol Assessment and Plan: continue home medications Status: Acute (4) Intractable abdominal pain Assessment and Plan: due to acute cholecystitis NPO IVF Status: Acute
[2017-07-03 15:19] VITALS: BP 114/62; PULSE 62; TEMP 98.3; O2SAT 98
--- NOTE | 2017-07-04 01:42 | OP ---
PROCEDURE DATE: 07/03/2017 PREOPERATIVE DIAGNOSES: 1. Acute cholecystitis. 2. Cholelithiasis. POSTOPERATIVE DIAGNOSES: 1. Acute cholecystitis. 2. Postinfectious right upper quadrant adhesions and fluid collections. PROCEDURES DONE: 1. Laparoscopic cholecystectomy. 2. Laparoscopic drainage of collection. SURGEON: Ras Aguero MD STAFF DEVELOPMENT NURSE: Hazel, PGY-2 resident. TYPE OF ANESTHESIA: General endotracheal tube anesthesia. ESTIMATED BLOOD LOSS: Around 10 mL. DRAINS: None. PATHOLOGY: Gallbladder with gallstone was sent for the Pathology. COMPLICATIONS: None. INTRAOPERATIVE FINDINGS: The patient had acute cholecystitis with extensive edema in the Calot's triangle as well as right upper quadrant and the patient had a fluid collection in the pericholecystic as well as perihepatic area and fluid collection was drained and extensive lysis of adhesion was done. DESCRIPTION OF PROCEDURE: On an intraoperative steps, this is a 56-year-old female who was diagnosed with acute cholecystitis and cholelithiasis and the patient was consented for the laparoscopic cholecystectomy possible open, brought to the OR, and placed supine on the operating room table. After induction of the anesthesia, the abdomen was prepped and draped in the usual sterile fashion. The supraumbilical transverse incision was made after incising the skin, subcutaneous tissue and the fascia. The Mason port was placed. Pneumo was created. Another 12-mm port was placed in the midline below costal margin and two 5-mm ports was placed in the midclavicular and anterior axillary line. After that, grasper and dissector was introduced and the gallbladder appeared to be extremely thickened, edematous, and inflamed and there was extensive inflammatory changes in the right lower quadrant with fluid collection in the pericholecystic and perihepatic area and first lysis of adhesions were done to retract the gallbladder cranially and the fluid collection in the perihepatic and pericholecystic area was suctioned out and the duodenum was dissected free from the gallbladder infundibulum and the dissection was continued to identify the cystic duct and cystic artery. The top down approach was done. The cystic duct, common bile duct junction, and cystic duct infundibulum was identified and clipped at 3 clips and cut in between 2 clips near the gallbladder and gallbladder was dissected free from the gallbladder fossa, taken in endo catch bag, taken out through the umbilical port site, and was sent off the table for Pathology. There was a proper hemostasis in each and every part of the procedure. The suction irrigation of the gallbladder fossa as well as the perihepatic area was done. All the fluids were suctioned out and the specimen was sent off the table for Pathology. Umbilical port site was closed in 2 layer, the fascia with 0 Vicryl interrupted sutures, skin with the 4-0 Monocryl, and dry sterile dressing was applied. The patient tolerated the procedure well. Count of instrument and gauze was correct. There was no apparent complications. The patient was extubated in the OR and sent to the Postanesthesia Care Unit in stable condition. Ras Aguero MD
--- NOTE | 2017-07-04 13:26 | CP.PCM.DIS ---
Provider - Provider Date of Admission: 07/02/17 15:43 Attending physician: Clarke Leyva MD Time Spent in preparation of Discharge (in minutes): 25 Diagnosis - Discharge Diagnosis (1) Acute cholecystitis Status: Acute (2) Diabetes Status: Acute (3) High cholesterol Status: Acute (4) Intractable abdominal pain Status: Acute Hospital Course - Lab Results Lab Results: Most Recent Lab Values WBC 8.9 K/uL (4.8-10.8) 07/03/17 05:45 RBC 4.98 Mil/uL (3.80-5.20) 07/03/17 05:45 Hgb 13.4 g/dL (12.0-16.0) 07/03/17 05:45 Hct 40.7 % (34.0-47.0) 07/03/17 05:45 MCV 81.7 fl (81.0-99.0) 07/03/17 05:45 MCH 26.9 pg (27.0-31.0) L 07/03/17 05:45 MCHC 32.9 g/dL (33.0-37.0) L 07/03/17 05:45 RDW 14.2 % (11.5-14.5) 07/03/17 05:45 Plt Count 301 K/uL (130-400) 07/03/17 05:45 MPV 8.8 fl (7.2-11.7) 07/03/17 05:45 Neut % (Auto) 64.7 % (50.0-75.0) 07/03/17 05:45 Lymph % (Auto) 27.8 % (20.0-40.0) 07/03/17 05:45 Dawson % (Auto) 6.7 % (0.0-10.0) 07/03/17 05:45 Eos % (Auto) 0.3 % (0.0-4.0) 07/03/17 05:45 Baso % (Auto) 0.5 % (0.0-2.0) 07/03/17 05:45 Neut # (Auto) 5.8 K/uL (1.8-7.0) 07/03/17 05:45 Lymph # (Auto) 2.5 K/uL (1.0-4.3) 07/03/17 05:45 Dawson # (Auto) 0.6 K/uL (0.0-0.8) 07/03/17 05:45 Eos # (Auto) 0.0 K/uL (0.0-0.7) 07/03/17 05:45 Baso # (Auto) 0.0 K/uL (0.0-0.2) 07/03/17 05:45 PT 10.7 Seconds (9.8-13.1) 07/03/17 05:45 INR 1.0 (0.9-1.2) 07/03/17 05:45 APTT 28.3 Seconds (25.6-37.1) 07/03/17 05:45 pO2 36 mm/Hg (30-55) 07/02/17 13:04 VBG pH 7.38 (7.32-7.43) 07/02/17 13:04 VBG pCO2 48 mmHg (40-60) 07/02/17 13:04 VBG HCO3 26.1 mmol/L 07/02/17 13:04 VBG Total CO2 29.9 mmol/L (22-28) H 07/02/17 13:04 VBG O2 Sat (Calc) 74.4 % (40-65) H 07/02/17 13:04 VBG Base Excess 2.5 mmol/L (0.0-2.0) H 07/02/17 13:04 VBG Potassium 4.0 mmol/L (3.6-5.2) 07/02/17 13:04 Sodium 136.0 mmol/L (132-148) 07/02/17 13:04 Chloride 99.0 mmol/L (98-107) 07/02/17 13:04 Glucose 238 mg/dL (65-105) H 07/02/17 13:04 Lactate 1.7 mmol/L (0.7-2.1) 07/02/17 13:04 FiO2 21.0 % 07/02/17 13:04 Sodium 138 mmol/l (132-148) 07/03/17 05:45 Potassium 3.8 MMOL/L (3.6-5.0) 07/03/17 05:45 Chloride 99 mmol/L (98-107) 07/03/17 05:45 Carbon Dioxide 27 mmol/L (22-30) 07/03/17 05:45 Anion Gap 16 (10-20) 07/03/17 05:45 BUN 11 mg/dl (7-17) 07/03/17 05:45 Creatinine 0.5 mg/dl (0.7-1.2) L 07/03/17 05:45 Est GFR ( Amer) > 60 07/03/17 05:45 Est GFR (Non-Af Amer) > 60 07/03/17 05:45 POC Glucose (mg/dL) 239 mg/dL (65-110) H 07/03/17 11:46 Random Glucose 194 mg/dL (65-105) H 07/03/17 05:45 Hemoglobin A1c 10.2 % (4.2-6.5) H 07/03/17 05:45 Serum Osmolality 294 mosm/kg (272-300) 07/02/17 12:55 Calcium 8.7 mg/dL (8.4-10.2) 07/03/17 05:45 Total Bilirubin 0.9 mg/dl (0.2-1.3) 07/03/17 05:45 AST 20 U/L (14-36) 07/03/17 05:45 ALT 43 U/L (9-52) 07/03/17 05:45 Alkaline Phosphatase 80 U/L (38-126) 07/03/17 05:45 Troponin I < 0.0120 ng/mL (0.00-0.120) 07/02/17 13:40 Total Protein 6.2 G/DL (6.3-8.2) L 07/03/17 05:45 Albumin 3.5 g/dL (3.5-5.0) 07/03/17 05:45 Globulin 2.7 gm/dL (2.2-3.9) 07/03/17 05:45 Albumin/Globulin Ratio 1.3 (1.0-2.1) 07/03/17 05:45 Lipase 81 U/L (23-300) 07/02/17 12:55 TSH 3rd Generation 2.22 mIU/ML (0.46-4.68) 07/03/17 05:45 Venous Blood Potassium 4.0 mmol/L (3.6-5.2) 07/02/17 13:04 Urine Color Yellow (YELLOW) 07/02/17 12:48 Urine Clarity Clear (Clear) 07/02/17 12:48 Urine pH 6.0 (5.0-8.0) 07/02/17 12:48 Ur Specific Kerby 1.024 (1.003-1.030) 07/02/17 12:48 Urine Protein Negative mg/dL (NEGATIVE) 07/02/17 12:48 Urine Glucose (UA) >=500 mg/dL (Normal) 07/02/17 12:48 Urine Ketones Negative mg/dL (NEGATIVE) 07/02/17 12:48 Urine Blood Negative (NEGATIVE) 07/02/17 12:48 Urine Nitrate Negative (NEGATIVE) 07/02/17 12:48 Urine Bilirubin Negative (NEGATIVE) 07/02/17 12:48 Urine Urobilinogen 0.2-1.0 mg/dL (0.2-1.0) 07/02/17 12:48 Ur Leukocyte Esterase Trace Marcell/uL (Negative) 07/02/17 12:48 Urine RBC (Auto) 2 /hpf (0-3) 07/02/17 12:48 Urine Microscopic WBC 1 /hpf (0-5) 07/02/17 12:48 Ur Squamous Epith Cells 1 /hpf (0-5) 07/02/17 12:48 B-Hydroxybutyrate 0.07 mM (0.02-0.27) 07/02/17 12:55 - Hospital Course Hospital Course: 56 year old female who was admitted for abd. pain forund to have acute cholecystitis. The patient was treated with IV abx and had lap andrea done. The patient did well pot-op, tolerated diet with good bowel sounds. The patient was discharged home on oral antibiotics. Discharge Exam - Head Exam Head Exam: ATRAUMATIC, NORMOCEPHALIC - Respiratory Exam Respiratory Exam: Clear to PA & Lateral, NORMAL BREATHING PATTERN - Cardiovascular Exam Cardiovascular Exam: REGULAR RHYTHM, +S1, +S2 - GI/Abdominal Exam GI & Abdominal Exam: Normal Bowel Sounds, Tenderness (oncision site) - Neurological Exam Neurological exam: Alert, Oriented x3 - Psychiatric Exam Psychiatric exam: Normal Affect, Normal Mood - Skin Skin Exam: Normal Color, Warm Discharge Plan - Discharge Medications Prescriptions: Ciprofloxacin HCl [Cipro] 500 mg PO BID #10 tablet Metronidazole [Flagyl] 500 mg PO TID #15 tab Ibuprofen [Motrin] 600 mg PO Q6 PRN #30 tab PRN Reason: Pain, Moderate (4-7) - Follow Up Plan Condition: STABLE Disposition: HOME/ ROUTINE Instructions: Cholecystectomy, Laparoscopic Surgery, Gallstones (DC) Additional Instructions: Complete all antibiotics Call Dr. Aguero's (Surgeon) office in 1 -2 weeks for follow up. Ok to take shower in 2 days. Take bandaid off. Keep white strips on until they fall off naturally No heavy lifting for 1 month Take antibiotic with meal Make sure to see your doctor in 1-2 days DRINK PLENTY OF FLUIDS take your medications as prescribed AVOID fatty foods RETURN TO ED IF worse pain, cant breath, persistent vomiting, high fever >101- 102 for hours, altered behavior, slurr speech, facial changes, focal weakness ( arm/leg or both), unable to urinate, heavy/persistent bleeding, passing out, chest pain, or other medical emergencies Referrals: Ras Aguero MD [Staff Provider] - Tony Barker MD [Family Provider] -
== END 2017-07-03 15:46 | disposition home or self-care (01) | DRG 494 ==
LOC: H.ER 11:36 → H.ERHOLD 15:43 → H.MEDSURG1 16:48
PROVIDERS: ADMIT Internal Medicine; ATTEND Internal Medicine
PROC: 0DNW4ZZ Release Peritoneum, Percutaneous Endoscopic Approach (ICD-10-PCS; 2017-07-03)
PROC: 0W9G4ZZ Drainage of Peritoneal Cavity, Percutaneous Endoscopic Approach (ICD-10-PCS; 2017-07-03)
PROC: 0FT44ZZ Resection of Gallbladder, Percutaneous Endoscopic Approach (ICD-10-PCS; principal; 2017-07-03 07:45)
DX: K80.00 Calculus of gallbladder with acute cholecystitis without obstruction (principal); K29.70 Gastritis, unspecified, without bleeding; E78.00 Pure hypercholesterolemia, unspecified; E10.9 Type 1 diabetes mellitus without complications; K66.0 Peritoneal adhesions (postprocedural) (postinfection); Z88.3 Allergy status to other anti-infective agents; Z88.0 Allergy status to penicillin